=== PATIENT | female | born 1950 | race Caucasian/White ===

== ENCOUNTER → 2016-06-02 | Outpatient (CLI) | payer OTHER ==
[~2016-06-02] MED LIST: ASPEC325 PO; CALC600T37 PO; FRRG PO; MELO7.5T5 PO; MULT-188 PO; MULT-614 PO; PRM/625 PO; [UNRECOGNIZED DRUG - CODE] PO
--- NOTE | 2016-06-02 15:07 | MAMMOGRAPHY REPORT ---
BILATERAL DIGITAL SCREENING MAMMOGRAM WITH CAD: 06/02/2016 CLINICAL HISTORY: Routine screening. Patient has no complaints. TECHNIQUE: Current study was also evaluated with a Computer Aided Detection (CAD) system. Bilatera l CC and MLO views were obtained. COMPARISON: Comparison is made to exams dated: 06/01/2015 mammogram, 05/27/2014 mammogram, 05/22/2013 mammogram, 05/21/2012 mammogram, 05/19/2011 mammogram, and 05/11/2010 mammogram - [facility]. BREAST COMPOSITION: The tissue of both breasts is heterogeneously dense, which may obscure small ma sses. FINDINGS: No suspicious masses, calcifications, or areas of architectural distortion are noted in e ither breast. There has been no significant interval change compared to prior exams. IMPRESSION: ACR BI-RADS CATEGORY 1: NEGATIVE There is no mammographic evidence of malignancy. A 1 year screening mammogram is recommended. The p atient will receive written notification of the results. Approximately 10% of breast cancers are not detected with mammography. A negative mammographic repor t should not delay biopsy if a clinically suggestive mass is present. Michelle Alejandre M.D. /:06/02/2016 12:27:34 Indirect Fire Infantryman: Charlene Strauss, [facility] letter sent: Normal 1/2 BI-RADS Code: ACR BI-RADS Category 1: Negative
== END | disposition home or self-care (01) ==
LOC: C.MAMM 08:45
PROVIDERS: ATTEND Obstetrics & Gynecology
DX: Z12.31 Encounter for screening mammogram for malignant neoplasm of breast (principal)

== ENCOUNTER → 2016-07-19 | Outpatient (CLI) | payer OTHER | END | disposition home or self-care (01) | LOC: C.PAPS 09:26 | PROVIDERS: ATTEND Obstetrics & Gynecology | DX: Z01.419 Encounter for gynecological examination (general) (routine) without abnormal findings (principal) ==

== ENCOUNTER → 2016-09-12 | Outpatient (CLI) | payer OTHER ==
--- NOTE | 2016-10-17 12:41 | CODING QUERY MEDICAL NECESSITY ---
SUPPORTING DIAGNOSIS NEEDED A supporting diagnosis is required for the test/procedure performed on this patient in order for us to be reimbursed by the patient's insurance. Please provide a supporting diagnosis for the following test/procedure listed below next to the test name along with your signature. *If there is no additional diagnosis for this patient that would support the following test/procedure please document that below next to the test/procedure. Test(s)/Procedure(s) that require a supporting diagnosis: * DXA, BONE DENSITY AXIAL DIAGNOSIS: Provider Signature: Date: Thank you Norma [employer] Information Management Once completed, please kindly fax back to [phone] For questions please call [phone]
== END | disposition home or self-care (01) ==
LOC: C.MAMM 08:41
PROVIDERS: ATTEND Internal Medicine
DX: Z00.00 Encounter for general adult medical examination without abnormal findings (principal); D47.2 Monoclonal gammopathy; Z78.0 Asymptomatic menopausal state

== ENCOUNTER → 2017-06-08 | Outpatient (CLI) | payer OTHER ==
--- NOTE | 2017-06-09 14:18 | MAMMOGRAPHY REPORT ---
BILATERAL DIGITAL SCREENING MAMMOGRAM TOMOSYNTHESIS WITH CAD: 06/08/2017 CLINICAL HISTORY: Routine screening. Patient has no complaints. TECHNIQUE: Breast tomosynthesis in addition to standard 2D mammography was performed. Current study was also evaluated with a Computer Aided Detection (CAD) system. COMPARISON: Comparison is made to exams dated: 06/02/2016 mammogram, 06/01/2015 mammogram, 05/27/2014 m ammogram, 05/22/2013 mammogram, 05/21/2012 mammogram, and 05/19/2011 mammogram - [facility] enter. BREAST COMPOSITION: The tissue of both breasts is heterogeneously dense, which may obscure small mas ses. FINDINGS: No suspicious masses, calcifications, or areas of architectural distortion are noted in ei ther breast. There has been no significant interval change compared to prior exams. IMPRESSION: ACR BI-RADS CATEGORY 1: NEGATIVE There is no mammographic evidence of malignancy. A 1 year screening mammogram is recommended. The pa tient will receive written notification of the results. Approximately 10% of breast cancers are not detected with mammography. A negative mammographic report should not delay biopsy if a clinically suggestive mass is present. Michelle Alejandre M.D. ah/:06/08/2017 13:33:26 Stopperer Assembler: Charlene MENENDEZ(R)(M), [facility] letter sent: Normal 1/2 BI-RADS Code: ACR BI-RADS Category 1: Negative
== END | disposition home or self-care (01) ==
LOC: C.MAMM 08:38
PROVIDERS: ATTEND Obstetrics & Gynecology
DX: Z12.31 Encounter for screening mammogram for malignant neoplasm of breast (principal)

== ENCOUNTER → 2017-08-31 | Outpatient (CLI) | payer OTHER | END | disposition home or self-care (01) | LOC: C.LABBC 15:28 | PROVIDERS: ATTEND Internal Medicine | DX: Z00.00 Encounter for general adult medical examination without abnormal findings (principal); E04.1 Nontoxic single thyroid nodule; D47.2 Monoclonal gammopathy ==

== ENCOUNTER 2022-12-30 12:10 | Inpatient (IN) ==
--- NOTE | 2022-12-30 12:47 | XRay Report ---
XR chest 1V not portable CLINICAL HISTORY: Chest pain, nonspecific TECHNIQUE: Single frontal radiograph of the chest was obtained. Comparison: Comparison is made to chest radiograph 12/10/2015 FINDINGS: No lines and tubes are seen. The cardiomediastinal silhouette is normal. Atelectasis at the left lung base. Small bilateral pleural effusions cannot be excluded. IMPRESSION: No acute chest disease. ACT 112: Negative or not required by law. Electronically signed by: Freddy Mcclain M.D. 12/30/2022 12:45 PM
[2022-12-30 13:53] LABS: Basophils # (auto) 0.03 K/uL (0.00-0.20); Basophils % (auto) 0.4 %; Eosinophils # (auto) 0.08 K/uL (0.00-0.50); Eosinophils % (auto) 1.1 %; Hematocrit (blood only) 31.1 % (37.0-47.0); Hemoglobin 10.3 g/dl (12.0-16.0); Immature Granulocytes # (auto) 0.02 K/uL (0.01-0.20); Immature Granulocytes % (auto) 0.3 %; Lymphocytes % (auto) 24.2 %; Mean Corpuscular Hemoglobin 30.5 pg (25.0-34.0); Mean Corpuscular Hgb Conc 33.1 g/dL (32.0-36.0); Mean Platelet Volume 12.3 fL (9.4-12.4); Monocytes % (auto) 7.1 %; Neutrophils % (auto) 66.9 %; Platelet Count 170 K/uL (130-400); RDW Coefficient of Variation 12.9 % (11.5-14.5); RDW Standard Deviation 43.2 fL (36.4-46.3); Red Blood Count 3.38 M/uL (4.20-5.40); White Blood Count 7.03 K/ul (4.8-10.8)
[2022-12-30 14:10] LABS: Albumin Globulin Ratio 0.6 (0.9-2); Albumin Level 2.4 gm/dl (3.4-5.0); BUN Creatinine Ratio 11.3 (10-20); Bilirubin,Total 0.3 mg/dl (0.2-1.0); Calcium 8.1 mg/dl (8.6-10.3); Creatinine Clr Calc Pharmacy 24.4 ml/min; Est GFR (African American) 25.8 ml/min; Est GFR (Non-African American) 22.2 ml/min; Globulin 4.3 gm/dl (2.5-4.0); Magnesium 1.8 mg/dl (1.7-2.4); Potassium 4.1 mmol/L (3.5-5.1); Total Protein 6.7 gm/dl (6.0-8.3)
--- NOTE | 2022-12-30 14:12 | Emergency Department Note ---
Impression & Plan SCOOTER (acute kidney injury), Hypertension, Pedal edema, Anemia ED Provider Note NAME: TRINH ANAYA AGE: 72 SEX: F : 1950 ARRIVES VIA: Walk-In INFORMANT: [Patient][family] ED PROVIDER(S): [Jeff Cleary MD] CHIEF COMPLAINT: Edema HISTORY OF PRESENT ILLNESS: The patient is a 72-year-old female presents to the ER with leg swelling that she has noticed for 5 days. The swelling seems better during the morning but then worsens as the day goes on. She is not short of breath. She does not really have any pain. There has been no difficulty with urination. No cough, cold or congestion. She has no history of issues like this before. She is on some blood pressure medication but does not take any diuretics. She has a recent diagnosis of multiple myeloma however, they have not started treatment. The patient admits that she has been eating differently the last few days because of the iday. She may have increased her salt intake. PMHx/PSHx/Social Hx: See Below PHYSICAL EXAM: GENERAL: Patient is in no acute distress. HEENT: No acute trauma, normocephalic atraumatic, mucous membranes moist, no nasal congestion. NECK: No stridor, no adenopathy, no meningismus, trachea is midline. LUNGS: Clear to auscultation bilaterally, no wheeze, no rhonchi, breath sounds equal. HEART: Without murmurs gallops or rubs, regular rate and rhythm. ABDOMEN: Soft, nontender, no peritonitis. EXTREMITIES: No cyanosis, full range of motion of all the joints without pain or difficulty. Moderate bilateral pedal edema. NEUROLOGIC: Oriented x 3, no acute motor or sensory deficits, no focal weakness. SKIN: No jaundice, no diaphoresis. DIFFERENTIAL DIAGNOSIS: Electrolyte imbalance, renal failure, fluid overload, CHF, DVT, anemia, thyroid disorder, among others. EMERGENCY DEPARTMENT PROCEDURES: MEDICAL DECISION MAKING: There is no leukocytosis. The patient is anemic however, this is baseline looking back at previous testing. There is a normal platelet count. No coagulopathy. Creatinine is high, the patient's creatinine has been rising but today's value is higher than previous testing. No concerning liver enzyme elevation. Patient appeared to be in a euthyroid state. Chest x-ray showed some potential fluid at the left base, no concerning CHF, no pneumonia. Bilateral lower extremity ultrasound did not show findings of DVT. On exam, the patient did have bilateral pedal edema. She was hypertensive. I did speak with nephrology, given the acute kidney injury and hypertension, they recommended IV diuresis and hospitalization. Patient was given a dose of IV Lasix, 40 mg while here in the ED I spoke with the patient and her family, I did speak with case management, the on-call hospitalist was consulted. Prior/Outside records/notes reviewed: Family practice note from 11/29/2022 discussing her chronic conditions and the plan moving forward. ECG per my interpretation: Indication was fluid overload. The ECG shows a normal sinus rhythm with a rate of 61. There is no ST elevation, no PVCs. There is some nonspecific ST change. No ST elevation. The QTc is 440. Continuous Cardiac Monitoring per my interpretation: An order was placed for continuous cardiac monitoring. The monitor shows a rate of 57 with sinus bradycardia. Imaging/x-ray results per my interpretation: Chest x-ray shows some trace fluid at the left base potentially, no pneumonia or CHF. Chronic Medical/Social conditions affecting care: Multiple myeloma Care/Management discussed with: Nephrology-Dr. Keene, case management and the on-call hospitalist. Level of care consideration(s): After review of the information above and other included data: --I believe the patient requires escalation of care to admission DISPOSITION: Admission with nephrology consult Past Med/Surg History Medical History Monoclonal gammopathy of renal significance (MGRS) Stage 3b chronic kidney disease Arthritis Hypertension Proteinuria Hyperlipidemia Abnormal computed tomography of ureter Renal cyst BEING MONITORED Surgical History History of colonoscopy History of total hip arthroplasty S/P partial hysterectomy S/P partial thyroidectomy [place] teeth removed Family History Father Hypertension Other Family history unknown No family history of adverse response to anesthesia Denies family history of Ovarian cancer Prostate cancer Myocardial infarction Breast cancer Colorectal cancer Stroke Social History Smoking Status: Never smoker Second Hand Exposure: No; Do You Dip or Chew Tobacco: No; Hx Alcohol Use: Yes Alcohol type: wine Alcohol Intake Frequency: Monthly or Less Hx Substance Use: No Preferred Language: Eritrean Communication Ability: Effective Visual Impairment: Diminished Hearing Ability: Normal Manager Track Required: No Beliefs That Will Affect Care: None marital status: Current Living Situation: Spouse current occupational status: retired How many Children do You have: 2 Feels Safe at Home: Yes Childhood Exposure to Second-Hand Smoke: No Diet: regular caffeine: Yes Dental Care, Regularly: Yes Physical Activity Frequency: 1-2 Times per Week Physical Activity Frequency Comment: walk Seatbelt Use: always Sunscreen Use: Yes Do you think of yourself as: straight/heterosexual Assistive Devices: None Allergies Allergies Allergy/AdvReac Type Severity Reaction Status Date / Time Sulfa (Sulfonamide Allergy Intermediate HIVES TO Verified 12/30/22 14:57 Antibiotics) SULFA DRUGS Home Meds Home Medications Medication Instructions Recorded Confirmed conjugated estrogens 0.625 mg 0.625 mg PO DAILY 10/16/18 12/30/22 tablet (Premarin) omega-3 fatty acids 1,250 mg 1,250 mg PO DAILY 10/16/18 12/30/22 capsule cholecalciferol (vitamin D3) 50 25 mcg PO DAILY 03/08/22 12/30/22 mcg (2,000 unit) tablet (Vitamin D3) magnesium 250 mg tablet 500 mg PO DAILY 03/08/22 12/30/22 zinc acetate 25 mg (zinc) capsule 25 mg PO DAILY 05/04/22 12/30/22 nebivolol 10 mg tablet 10 mg PO HS 06/22/22 12/30/22 calcium carbonate 500 mg calcium 500 mg PO DAILY 12/30/22 12/30/22 (1,250 mg) tablet rosuvastatin 5 mg tablet 5 mg PO HS 12/30/22 12/30/22 Previous Rx's Medication Instructions Recorded lisinopril 40 mg tablet 40 mg PO QAM #90 tabs 08/30/22 Results & Data (ED) Vital Signs Vital Signs - 24 hr 12/30/22 12:24 12/30/22 13:19 12/30/22 13:35 Temperature 36.8 C Temperature Source Temporal Artery Scan Pulse Rate 66 57 L Pulse Rate [Apical] Respiratory Rate 18 16 Respiratory Effort / Characteristics Respiratory Depth Respiratory Pattern Blood Pressure 213/97 H Blood Pressure [Left Arm] Blood Pressure Mean 135 Blood Pressure Mean [Left Arm] Blood Pressure Position [Left Arm] Pulse Oximetry 97 Oxygen Delivery Method Room Air Sepsis Recent Fever Within 48 Hours No Sepsis New/Unexplained Change in Mental Status No Sepsis Action Taken by Nursing No Action Required 12/30/22 15:09 12/30/22 16:01 12/30/22 18:33 Temperature Temperature Source Pulse Rate Pulse Rate [Apical] 65 59 L Respiratory Rate 18 17 Respiratory Effort / Characteristics Non-Labored Spontaneous Respiratory Depth Normal Respiratory Pattern Regular Blood Pressure Blood Pressure [Left Arm] 210/95 H 200/104 H 168/90 H Blood Pressure Mean Blood Pressure Mean [Left Arm] 133 136 116 Blood Pressure Position [Left Arm] Semi-fowlers Semi-fowlers Pulse Oximetry 97 Oxygen Delivery Method Sepsis Recent Fever Within 48 Hours Sepsis New/Unexplained Change in Mental Status Sepsis Action Taken by Alf Medications Current Medication List: was personally reviewed by me Laboratory Data Attestation: I reviewed the patient's lab results. 12/30/22 13:32 12/30/22 13:32 Lab Results 12/30/22 12/30/22 Range/Units 13:32 18:10 WBC 7.03 (4.8-10.8) K/ul RBC 3.38 L (4.20-5.40) M/uL Hgb 10.3 L (12.0-16.0) g/dl Hct 31.1 L (37.0-47.0) % MCV 92.0 (80.0-100.0) fL MCH 30.5 (25.0-34.0) pg MCHC 33.1 (32.0-36.0) g/dL RDW Std Deviation 43.2 (36.4-46.3) fL RDW Coeff of Christopher 12.9 (11.5-14.5) % Plt Count 170 (130-400) K/uL MPV 12.3 (9.4-12.4) fL Immature Gran % (Auto) 0.3 % Neut % (Auto) 66.9 % Lymph % (Auto) 24.2 % [place] % (Auto) 7.1 % Eos % (Auto) 1.1 % Baso % (Auto) 0.4 % Neut # (Auto) 4.70 (1.40-6.50) K/uL Lymph # (Auto) 1.70 (1.20-3.40) K/uL [place] # (Auto) 0.50 (0.11-0.59) K/uL Eos # (Auto) 0.08 (0.00-0.50) K/uL Baso # (Auto) 0.03 (0.00-0.20) K/uL Immature Gran # (Auto) 0.02 (0.01-0.20) K/uL PT 9.6 (9.0-12.0) Seconds INR 0.9 (0.9-1.1) APTT 20.2 L (21.0-31.0) Seconds PTT Ratio 0.7 Sodium 137 (136-145) mmol/L Potassium 4.1 (3.5-5.1) mmol/L Chloride 109 H (98-107) mmol/L Carbon Dioxide 24 (21-32) mmol/L Anion Gap 4 (3-11) BUN 24 H (6-23) mg/dl Creatinine 2.13 H (0.6-1.2) mg/dl Est Cr Clr Drug Dosing 24.4 ml/min Est GFR ( Amer) 25.8 ml/min Est GFR (Non-Af Amer) 22.2 ml/min BUN/Creatinine Ratio 11.3 (10-20) Glucose 76 (70-99(Fasting)) mg/dl Calcium 8.1 L (8.6-10.3) mg/dl Magnesium 1.8 (1.7-2.4) mg/dl Total Bilirubin 0.3 (0.2-1.0) mg/dl AST 16 (13-39) U/L ALT 10 (7-52) U/L Alkaline Phosphatase 49 (34-104) U/L Troponin I High Sens 6.1 (0-14) pg/ml B-Natriuretic Peptide 609 H (0-100) pg/ml Total Protein 6.7 (6.0-8.3) gm/dl Albumin 2.4 L (3.4-5.0) gm/dl Globulin 4.3 H (2.5-4.0) gm/dl Albumin/Globulin Ratio 0.6 L (0.9-2) TSH 3.498 (0.300-4.500) uIu/ml Administered Medications Discontinued Medications Furosemide (Furosemide 40 Mg/4 Ml Vial) 40 mg IV ONE ONE Stop: 12/30/22 14:42 Last Admin: 12/30/22 15:08 Dose: 40 mg Documented By: GRACE Nebivolol (Nebivolol Hcl) 1 each PO NOW STA Stop: 12/30/22 17:27 Last Admin: 12/30/22 17:37 Dose: 1 each Documented By: AB Imaging Data Radiologist's Impression: Chest X-Ray 12/30/22 12:29 XR chest 1V not portable CLINICAL HISTORY: Chest pain, nonspecific TECHNIQUE: Single frontal radiograph of the chest was obtained. Comparison: Comparison is made to chest radiograph 12/10/2015 FINDINGS: No lines and tubes are seen. The cardiomediastinal silhouette is normal. Atelectasis at the left lung base. Small bilateral pleural effusions cannot be excluded. IMPRESSION: No acute chest disease. ACT 112: Negative or not required by law. Electronically signed by: Freddy Mcclain M.D. 12/30/2022 12:45 PM Venous Doppler Study 12/30/22 13:41 US venous doppler LE CLINICAL HISTORY: swelling TECHNIQUE: Bilateral lower extremity real-time compression venous ultrasound with Color Doppler imaging. Utilizing real-time ultrasonic imaging multiple real time high-resolution ultrasonic images with compression and noncompression maneuvers of the deep venous system in addition to color doppler imaging were performed from the common femoral vein through the proximal calf veins. COMPARISON: None available at the time of this dictation. FINDINGS/IMPRESSION: Currently there is normal compressibility of the deep venous system from the common femoral vein through the proximal calf veins. No superficial venous thrombosis is identified. ACT 112: Negative or not required by law. Electronically signed by: Freddy Mcclain M.D. 12/30/2022 2:35 PM Discharge Plan Visit Data Chief Complaint: Edema To Extremity Stated Complaint: swelling in thigh, ref by doc ED Provider: Jeff Cleary Discharge Problem: SCOOTER (acute kidney injury), Hypertension, Pedal edema, Anemia Patient Disposition: Admitted As Inpatient Condition: Fair Forms Stand Alone Forms: [facility] Prescriptions Prescriptions: No Action zinc acetate 25 mg (zinc) capsule 25 mg PO DAILY lisinopril 40 mg tablet 40 mg PO QAM Qty: 90 3RF Premarin 0.625 mg tablet 0.625 mg PO DAILY omega-3 fatty acids 1,250 mg capsule 1,250 mg PO DAILY cholecalciferol (vitamin D3) [Vitamin D3] 50 mcg (2,000 unit) tablet 25 mcg PO DAILY magnesium 250 mg tablet 500 mg PO DAILY nebivolol 10 mg tablet 10 mg PO HS calcium carbonate [Calcium 500] 500 mg calcium (1,250 mg) Tablet 500 mg PO DAILY rosuvastatin 5 mg tablet 5 mg PO HS Rx Instructions: Take 1 tablet by mouth once daily Referrals Referrals: Cari Whitaker PA-C [Primary Care Provider] - Discharge Problem: Hypertension Qualifiers: Hypertension type: unspecified Qualified Code(s): I10 - Essential (primary) hypertension Anemia Qualifiers: Anemia type: unspecified type Qualified Code(s): D64.9 - Anemia, unspecified
[2022-12-30 14:17] LABS: Troponin I High Sensitivity 6.1 pg/ml (0-14)
[2022-12-30 14:25] LABS: INR 0.9 (0.9-1.1); Partial Thromboplastin Ratio 0.7; Partial Thromboplastin Time 20.2 Seconds (21.0-31.0); Prothrombin Time 9.6 Seconds (9.0-12.0)
[2022-12-30 14:26] LABS: Thyroid Stimulating Hormone 3.498 uIu/ml (0.300-4.500)
--- NOTE | 2022-12-30 14:36 | Ultrasound Report ---
US venous doppler LE BI CLINICAL HISTORY: swelling TECHNIQUE: Bilateral lower extremity real-time compression venous ultrasound with Color Doppler imagi ng. Utilizing real-time ultrasonic imaging multiple real time high-resolution ultrasonic images with compression and noncompression maneuvers of the deep venous system in addition to color doppler imagi ng were performed from the common femoral vein through the proximal calf veins. COMPARISON: None available at the time of this dictation. FINDINGS/IMPRESSION: Currently there is normal compressibility of the deep venous system from the common femoral vein thro ugh the proximal calf veins. No superficial venous thrombosis is identified. ACT 112: Negative or not required by law. Electronically signed by: Freddy Mcclain M.D. 12/30/2022 2:35 PM
[2022-12-30] MEDS ORDERED: FUROSEMIDE 40 MG/4 ML VIAL IV ONE (14:41)
--- NOTE | 2022-12-30 15:59 | History & Physical Report ---
Date of Service December 30, 2022 Assessment & Plan (1) Lower extremity edema: Plan: Worsening lower extremity swelling x4 days Patient endorses recent change in diet around Thanksgiving; more salt No hx of CHF BNP elevated at 609 Routine echo ordered CXR revealed NAF Elevated creatinine at 2.13 (with baseline 1.5, but increasing over the last few months) Venous Doppler of the LEs B/L revealed no DVTs Lasix 40 mg given in the ED Continue diuresis; Lasix 40 mg IV QAM Continue to trend creatinine level with daily labs A.m. CBC, BMP (2) Hypertension: Plan: Elevated BP at 210/95 at time of admission Continue home nebivolol HS if okay by pharmacy Labetalol 2.5 mg IV and hydralazine 10 mg p.o. given Patient placed in PCU in case additional IV antihypertensives are needed (3) Stage 3b chronic kidney disease: Plan: BUN 24, creatinine 2.13, EGFR 22.2 on arrival Patient follows with [facility] nephrology Avoid nephrotoxic agents Hold lisinopril (4) Multiple myeloma: Plan: Dx 2 weeks ago; following with Dr. Greenberg Treatment has not started yet (5) Monoclonal gammopathy of renal significance (MGRS): Plan: With recent conversion to multiple myeloma Plan Disposition: Obs -admit to PCU telemetry Full code Low Na diet VTE PPx: Teds History of Present Illness Chief Complaint: Edema to extremity Primary Care Provider: Cari Whitaker PA-C Anita is a 72-year-old female with PMH of MGRS, recent multiple myeloma dx, CKD stage IIIb, and HTN. She presented for worsening leg swelling x4 days. She reports that she has been eating more salty foods this past week due to Thanksgiving. No prior history of leg swelling. No PMH of CHF. No pain/redness in the legs on arrival. Patient reports that she took her morning medications, and that there are no recent changes in medications. She does not take diuretics. Of note, the patient was recently diagnosed with multiple myeloma and follows with Dr. Greenberg, but no cancer treatment has been started yet. Patient denies tobacco use, recreational drug use; endorses minimal alcohol use. Patient exhibits hypertension at 210/95 at time of admission; SPO2 97% on RA; vitals otherwise stable. ED course: Lasix 40 mg IV ROS: Patient endorses diarrhea over the last week, and swelling in LEs. Patient denies fever, chills, sweating, CP, SOB, abdominal pain, N/V, burning with urination, dysuria, or redness/numbness/tingling/pain in the legs. No PMHx CHF, SC, DVT/PE, diabetes Allergies Allergy/AdvReac Type Severity Reaction Status Date / Time Sulfa (Sulfonamide Allergy Intermediate HIVES TO Verified 12/30/22 14:57 Antibiotics) SULFA DRUGS Home Medications Medication Instructions Recorded Confirmed Type conjugated estrogens 0.625 mg 0.625 mg PO DAILY 10/16/18 12/30/22 History tablet (Premarin) omega-3 fatty acids 1,250 mg 1,250 mg PO DAILY 10/16/18 12/30/22 History capsule cholecalciferol (vitamin D3) 50 25 mcg PO DAILY 03/08/22 12/30/22 History mcg (2,000 unit) tablet (Vitamin D3) magnesium 250 mg tablet 500 mg PO DAILY 03/08/22 12/30/22 History zinc acetate 25 mg (zinc) capsule 25 mg PO DAILY 05/04/22 12/30/22 History nebivolol 10 mg tablet 10 mg PO HS 06/22/22 12/30/22 History lisinopril 40 mg tablet 40 mg PO QAM #90 tabs 08/30/22 12/30/22 Rx calcium carbonate 500 mg calcium 500 mg PO DAILY 12/30/22 12/30/22 History (1,250 mg) tablet rosuvastatin 5 mg tablet 5 mg PO HS 12/30/22 12/30/22 History Past Med/Surg History Medical History Monoclonal gammopathy of renal significance (MGRS) Stage 3b chronic kidney disease Arthritis Hypertension Proteinuria Hyperlipidemia Abnormal computed tomography of ureter Renal cyst BEING MONITORED Surgical History History of colonoscopy History of total hip arthroplasty S/P partial hysterectomy S/P partial thyroidectomy [place] teeth removed Family History Father Hypertension Other Family history unknown No family history of adverse response to anesthesia Denies family history of Ovarian cancer Prostate cancer Myocardial infarction Breast cancer Colorectal cancer Stroke Social History Smoking Status: Never smoker Second Hand Exposure: No; Do You Dip or Chew Tobacco: No; Hx Alcohol Use: Yes Alcohol type: wine Alcohol Intake Frequency: Monthly or Less Hx Substance Use: No Preferred Language: Citizen Of [place] Communication Ability: Effective Visual Impairment: Diminished Hearing Ability: Normal Director Inbound Sales Required: No Beliefs That Will Affect Care: None marital status: Current Living Situation: Spouse current occupational status: retired How many Children do You have: 2 Other Information That Helps Us Care for You: No Feels Safe at Home: Yes Safety Concerns: Feels Safe At This Time Childhood Exposure to Second-Hand Smoke: No Diet: regular caffeine: Yes Dental Care, Regularly: Yes Physical Activity Frequency: 1-2 Times per Week Physical Activity Frequency Comment: walk Seatbelt Use: always Sunscreen Use: Yes Do you think of yourself as: straight/heterosexual Assistive Devices: None Review of Systems Review of Systems: See HPI above Physical Exam Physical Exam: General: no acute distress; non-toxic appearing; well-nourished; cooperative HEENT: normocephalic, atraumatic; no scleral icterus; PERRLA w/ EOMs intact; moist mucus membrane; vision and hearing grossly intact Neck: supple; + JVD; no lymphadenopathy; trachea midline Skin: warm, dry without signs of tenting; no cyanosis; no rashes, bruising, lesions, or erythema noted CV: chest wall NTP; RRR; S1/S2 normal; no murmurs/rubs/gallops; pulses intact and symmetric at radial, DP, and PT Lungs: no acute respiratory distress; symmetrical chest wall expansion; clear breath sounds across all lung moscoso w/o adventitious sounds; no wheezing ABD: Soft, NTP; BS present; no rebound/guarding; no ascites; no distention; negative CVA tenderness MSK: no tics or fasciculations; +2 edema in the lower extremities B/L extending from the dorsal aspect of both feet up to the knees; patient demonstrates the ability to wiggle toes; full active ROM of LEs; no dizziness when walking Neuro: A&Ox3; normal mood and affect; fluent speech; no focal deficits; sensation grossly intact in the LEs B/L Results & Data Results & Data Vital Signs (Past 12 Hours) Vital Signs Temp Pulse Pulse Resp BP BP Pulse Ox 12/30/22 15:09 65 18 210/95 H 97 12/30/22 13:35 16 12/30/22 13:19 57 L 12/30/22 12:24 36.8 C 66 18 213/97 H 97 O2 Del Method 12/30/22 15:09 12/30/22 13:35 12/30/22 13:19 12/30/22 12:24 Room Air Laboratory Results Abnormal lab results 12/30/22 Range/Units 13:32 RBC 3.38 L (4.20-5.40) M/uL Hgb 10.3 L (12.0-16.0) g/dl Hct 31.1 L (37.0-47.0) % APTT 20.2 L (21.0-31.0) Seconds Chloride 109 H (98-107) mmol/L BUN 24 H (6-23) mg/dl Creatinine 2.13 H (0.6-1.2) mg/dl Calcium 8.1 L (8.6-10.3) mg/dl Albumin 2.4 L (3.4-5.0) gm/dl Globulin 4.3 H (2.5-4.0) gm/dl Albumin/Globulin Ratio 0.6 L (0.9-2) Diagnostic Findings Chest X-Ray 12/30/22 12:29 XR chest 1V not portable CLINICAL HISTORY: Chest pain, nonspecific TECHNIQUE: Single frontal radiograph of the chest was obtained. Comparison: Comparison is made to chest radiograph 12/10/2015 FINDINGS: No lines and tubes are seen. The cardiomediastinal silhouette is normal. Atelectasis at the left lung base. Small bilateral pleural effusions cannot be excluded. IMPRESSION: No acute chest disease. ACT 112: Negative or not required by law. Electronically signed by: Freddy Mcclain M.D. 12/30/2022 12:45 PM Venous Doppler Study 12/30/22 13:41 US venous doppler LE CLINICAL HISTORY: swelling TECHNIQUE: Bilateral lower extremity real-time compression venous ultrasound with Color Doppler imaging. Utilizing real-time ultrasonic imaging multiple real time high-resolution ultrasonic images with compression and noncompression maneuvers of the deep venous system in addition to color doppler imaging were performed from the common femoral vein through the proximal calf veins. COMPARISON: None available at the time of this dictation. FINDINGS/IMPRESSION: Currently there is normal compressibility of the deep venous system from the common femoral vein through the proximal calf veins. No superficial venous thrombosis is identified. ACT 112: Negative or not required by law. Electronically signed by: Freddy Mcclain M.D. 12/30/2022 2:35 PM Code Status & VTE Plan Code Status Full code VTE Prophylaxis Plan VTE Prophylaxis will be ordered: Yes Supervising Physician Co-Signing Physician Notes Patient seen and examined, chart reviewed, case discussed with Gifty Cid I agree with the assessment and plan as above except as otherwise noted Labs and images reviewed Anita is a 72yo F with a PMHx of MGUS recently dx with MM. Several days of leg swelling, presented to the ER for concern of elevated creatinine and leg swelling. Was discussed with nephrology while in the ER, recommend lasix 20mg daily No prior history of hx of CHF. Echo pending. No chest pain. Dopplers negative for PE. EKG nsr nonspecific ST/T wave change and no territorial ST elevation/depressions or T wave inversions. Shital is seen at the bedside MGUS followed with Dr. Greenberg. Was followed for over 7 years, recently want found to have progressed to MM. She is not sure which mutations are present or what regimen is going to be selected, but she is following up this week for discussion of chemotherapy and anticipated to start chemo on January 16 she has a history CKD is thought to be due to gammopathy, although has had hx of elevated BP. Started antihypertensives 2 years ago, home BP is normally 140s/80s in the last few weeks. 160s in the doctors office and has had some white coat syndrome. Doing well with nebivolol and lisinopril normally as outpatient. Per Anita and her family she has had progressive leg swelling for 5 days. Has had more salt than normal and charcutery for the holidays although did not eat very much of this. She is still peeing regularly, a little less than normal in the last 2 days a cloudy-yellow neither light nor dark. No dysuria. No polyuria. No flank or back pain. She has not had any chest pain or chest pressure at any time and has no history of CAD/heart failure high-sensitivity troponin was normal. Suspect CKD 2/2 gammopathy, may also have some hypertensive renal dysfunction. Patient is clinically volume overloaded with an elevated BNP. Echo is pending, no evidence of SC/acute ischemic disease. Some salt indiscretion, continue diuresis with Lasix daily and follow-up BMP daily Hx HTN on tx x2 years. Goal inpatient SBP less than 180, patient is with significant whitecoat hypertension. eceived her home nebivolol, remains hypertensive in 200s on 1 hour recheck,.May use labetelol q6h adjunct if HR >60. Alternatively can add q6h hydralazine, prefer OR over IV due to risk of precipitious drop. No symptoms of HTN at bedside. Signed out to overnight resident. Moved to PCU. Agree with assessment and management above PG Care Time/CCT Total # of Minutes Spent Total Time Spent with Patient: Total time spent is greater than 50% in coordination of care (as documented) at patient's floor/unit and/or counseling patient: Coding [place] [address] INT INP/OBS CARE 2/55MIN Patient Type Established Medical Decision Making Moderate Complexity Diagnoses Lower extremity edema R60.0 Hypertension I10 Stage 3b chronic kidney disease N18.32 Multiple myeloma C90.00 Monoclonal gammopathy of renal significance (MGRS) D47.2; N29
[2022-12-30] MEDS ORDERED: NEBIVOLOL HCL PO STA (17:26)
[2022-12-30] MEDS ORDERED: hydrALAZINE 10 MG TAB PO ONE (19:35)
[2022-12-30] MEDS ORDERED: LABETALOL HCL IV 5 MG/ML 20ML IV STA (19:54)
[2022-12-30] MEDS ORDERED: ACETAMINOPHEN 325 MG TAB PO PRN (20:23)
[2022-12-30] MEDS: ROSUVASTATIN CALCIUM 5 MG TAB PO SCH (21:07)
[2022-12-31 06:05] LABS: Basophils # (auto) 0.02 K/uL (0.00-0.20); Basophils % (auto) 0.4 %; Eosinophils # (auto) 0.07 K/uL (0.00-0.50); Eosinophils % (auto) 1.2 %; Hematocrit (blood only) 28.9 % (37.0-47.0); Hemoglobin 9.1 g/dl (12.0-16.0); Immature Granulocytes # (auto) 0.02 K/uL (0.01-0.20); Immature Granulocytes % (auto) 0.4 %; Lymphocytes # (auto) 1.79 K/uL (1.20-3.40); Lymphocytes % (auto) 31.5 %; Mean Corpuscular Hemoglobin 29.7 pg (25.0-34.0); Mean Corpuscular Hgb Conc 31.5 g/dL (32.0-36.0); Mean Corpuscular Volume 94.4 fL (80.0-100.0); Mean Platelet Volume 12.4 fL (9.4-12.4); Monocytes # (auto) 0.46 K/uL (0.11-0.59); Monocytes % (auto) 8.1 %; Neutrophils # (auto) 3.33 K/uL (1.40-6.50); Neutrophils % (auto) 58.4 %; Platelet Count 155 K/uL (130-400); RDW Coefficient of Variation 12.7 % (11.5-14.5); RDW Standard Deviation 43.8 fL (36.4-46.3); Red Blood Count 3.06 M/uL (4.20-5.40); White Blood Count 5.69 K/ul (4.8-10.8)
[2022-12-31 06:22] LABS: BUN Creatinine Ratio 11.8 (10-20); Calcium 7.7 mg/dl (8.6-10.3); Creatinine Clr Calc Pharmacy 23.6 ml/min; Est GFR (African American) 27.3 ml/min; Est GFR (Non-African American) 23.6 ml/min; Potassium 3.7 mmol/L (3.5-5.1)
[2022-12-31] MEDS: ESTROGENS, CONJUGATED 0.625 MG TAB PO SCH (08:22)
[2022-12-31] MEDS: MAGNESIUM OXIDE 400 MG TAB PO SCH (08:22)
[2022-12-31] MEDS: FUROSEMIDE 40 MG/4 ML VIAL IV SCH (08:22)
--- NOTE | 2022-12-31 08:29 | Electrocardiogram Report ---
Test Reason : Blood Pressure : / mmHG Vent. Rate : 061 BPM Atrial Rate : 061 BPM P-R Int : 160 ms QRS Dur : 084 ms QT Int : 438 ms P-R-T Axes : 082 042 063 degrees QTc Int : 440 ms Normal sinus rhythm Normal ECG When compared with ECG of 05-DEC-2020 02:34, No significant change was found Confirmed by Ravi Haney ([id number]) on 12/31/2022 8:29:32 AM Referred By: Cari Whitaker Confirmed By:Ravi Haney
[2022-12-31] MEDS: lisinopril 40 MG TAB PO SCH (08:47)
[2022-12-31 09:04] LABS: Appearance Urine Cloudy (Clear); Bacteria Urine Automated 4+ (Negative); Bilirubin Urine Negative (Negative); Blood Urine 3+ (Negative); Color Urine Yellow; Glucose Urine UA Negative (Negative); Ketones Urine Negative (Negative); Leukocyte Esterase Urine Trace (Negative); Nitrite Urine Positive (Negative); Protein Urine 4+ (Negative); RBC Urine Automated >30 /hpf (0-4); Specific Gravity Urine 1.013 (1.000-1.030); Urobilinogen Urine Negative (Negative); WBC Urine Automated >30 /hpf (0-5)
[2022-12-31 09:46] LABS: Protein Creatinine Ratio Urine 10.5 (0-0.2)
--- NOTE | 2022-12-31 10:27 | Hospitalist Progress Note ---
Date of Service December 31, 2022 Assessment & Plan (1) Lower extremity edema: Plan: Suspect due to CKD from proteinuria from myeloma +/- hypertensive kidney disease ARPITA hose + Lasix/chlorthalidone (2) Hypertension: Plan: Continue lisinopril and Bystolic IV Lasix 40mg daily Added chlorthalidone as still raised after this May need due use calcium channel carmen if still raised after this but will try to avoid as will likely worsen lower extremity edema (3) Asymptomatic bacteriuria: Plan: Possible diagnosis Discussed with Dr Greenberg and recommended treating in setting of multiple myeloma Blood cultures, procalcitonin, CRP, ESR Start ceftriaxone (4) Stage 3b chronic kidney disease: Plan: BUN 24, creatinine 2.13, EGFR 22.2 on arrival Patient follows with [facility] nephrology Ok to continue lisinopril (5) Multiple myeloma: Plan: Dx 2 weeks ago; following with Dr. Greenberg Treatment has not started yet (6) Monoclonal gammopathy of renal significance (MGRS): Plan: With recent conversion to multiple myeloma Plan Disposition: Obs -admit to PCU telemetry Full code Low Na diet VTE PPx: Teds Admission and Anticipated Discharge Date Admission Date: December 30, 2022 Subjective No significant improvement in leg edema overnight. No fever, chills, erythema. UA concerning for infection but she denies any back pain, abdominal pain, dysuria, change in smell or frequency. Review of Systems Review of Systems: All systems reviewed & are unremarkable except as noted in HPI & below Physical Exam Constitutional: WD/WN, vitals as above ENMT: external ear and nose normal, oropharynx normal Respiratory: normal respiratory effort, lungs clear to auscultation Cardiovascular: RRR, no murmur, no edema Gastrointestinal (Abdomen): normal bowel sounds, soft, nontender, no hepatosplenomegaly Musculoskeletal: no cyanosis or clubbing, extremities motor strength 5/5 Skin: no rashes, warm and dry Psychiatric: A+Ox3, euthymic affect Genitourinary: no CVA tenderness Results & Data Results & Data Vital Signs (Past 12 Hours) Vital Signs Temp Pulse Pulse Resp BP Pulse Ox O2 Del Method 12/31/22 09:54 57 L 12/31/22 07:54 36.5 C 63 18 172/76 H 98 Room Air 12/30/22 23:00 36.5 C 62 16 158/62 H 98 Room Air PG Care Time/CCT Total # of Minutes Spent Total Time Spent with Patient: Total time spent is greater than 50% in coordination of care (as documented) at patient's floor/unit and/or counseling patient: Coding Level of Care Code 58325 SUB INP/OBS CARE 3/50MIN Diagnoses Lower extremity edema R60.0 Other secondary hypertension I15.8 Hypertension type: other secondary hypertension Asymptomatic bacteriuria R82.71 Stage 3b chronic kidney disease N18.32 Multiple myeloma not having achieved remission C90.00 Multiple myeloma remission status: not in remission Monoclonal gammopathy of renal significance (MGRS) D47.2; N29 (2) Hypertension Hypertension type: other secondary hypertension Qualified Code(s): I15.8 - Other secondary hypertension (5) Multiple myeloma Multiple myeloma remission status: not in remission Qualified Code(s): C90.00 - Multiple myeloma not having achieved remission
[2022-12-31] MEDS: cefTRIAXone SODIUM 1,000 MG in DEXTROSE 5 % MINI-B 50 ML IV SCH (12:09)
--- NOTE | 2022-12-31 12:11 | XCELERA ---
[id number] \\[id number]
[2022-12-31 13:27] LABS: Appearance Urine Clear (Clear); Bacteria Urine Automated 4+ (Negative); Bilirubin Urine Negative (Negative); Blood Urine 3+ (Negative); Color Urine Yellow; Epithelial Cell Urine Auto >30 /lpf (0-5); Glucose Urine UA Negative (Negative); Ketones Urine Negative (Negative); Leukocyte Esterase Urine Negative (Negative); Nitrite Urine Negative (Negative); Protein Urine 3+ (Negative); RBC Urine Automated >30 /hpf (0-4); Specific Gravity Urine 1.009 (1.000-1.030); Urobilinogen Urine Negative (Negative)
[2022-12-31] MEDS: CHLORTHALIDONE 25 MG TAB PO SCH (16:09)
[2022-12-31] MEDS: ROSUVASTATIN CALCIUM 5 MG TAB PO SCH (21:27)
[2022-12-31] MEDS: NEBIVOLOL HCL PO SCH (21:28)
[2022-12-31] MEDS: METOPROLOL TARTRATE 50 MG TAB PO SCH (22:11)
[2023-01-01 08:05] LABS: Basophils # (auto) 0.03 K/uL (0.00-0.20); Basophils % (auto) 0.4 %; Eosinophils % (auto) 1.3 %; Hemoglobin 9.5 g/dl (12.0-16.0); Immature Granulocytes # (auto) 0.03 K/uL (0.01-0.20); Immature Granulocytes % (auto) 0.4 %; Lymphocytes # (auto) 1.86 K/uL (1.20-3.40); Lymphocytes % (auto) 23.5 %; Mean Corpuscular Hemoglobin 30.7 pg (25.0-34.0); Mean Corpuscular Hgb Conc 32.8 g/dL (32.0-36.0); Mean Corpuscular Volume 93.9 fL (80.0-100.0); Mean Platelet Volume 12.5 fL (9.4-12.4); Monocytes # (auto) 0.62 K/uL (0.11-0.59); Monocytes % (auto) 7.8 %; Neutrophils # (auto) 5.29 K/uL (1.40-6.50); Neutrophils % (auto) 66.6 %; Platelet Count 162 K/uL (130-400); RDW Coefficient of Variation 12.8 % (11.5-14.5); Red Blood Count 3.09 M/uL (4.20-5.40); Reticulocyte % 0.9 % (0.5-2.0); Reticulocytes # 0.03 10^6/uL (0.02-0.10); White Blood Count 7.93 K/ul (4.8-10.8)
[2023-01-01] MEDS: CHLORTHALIDONE 25 MG TAB PO SCH (08:13)
[2023-01-01] MEDS: lisinopril 40 MG TAB PO SCH (08:13)
[2023-01-01] MEDS: MAGNESIUM OXIDE 400 MG TAB PO SCH (08:13)
[2023-01-01] MEDS: ESTROGENS, CONJUGATED 0.625 MG TAB PO SCH (08:14)
[2023-01-01] MEDS: METOPROLOL TARTRATE 50 MG TAB PO SCH (08:14)
[2023-01-01] MEDS: FUROSEMIDE 40 MG/4 ML VIAL IV SCH (08:14)
[2023-01-01 08:24] LABS: BUN Creatinine Ratio 13.2 (10-20); Calcium 7.9 mg/dl (8.6-10.3); Creatinine Clr Calc Pharmacy 24.4 ml/min; Est GFR (African American) 28.3 ml/min; Est GFR (Non-African American) 24.4 ml/min; Magnesium 1.7 mg/dl (1.7-2.4); Potassium 3.8 mmol/L (3.5-5.1)
[2023-01-01] MEDS: HEPARIN SOD 5,000 UNIT/0.5 ML VIAL SQ SCH ×2 (10:46→20:33)
[2023-01-01] MEDS: cefTRIAXone SODIUM 1,000 MG in DEXTROSE 5 % MINI-B 50 ML IV SCH (10:46)
--- NOTE | 2023-01-01 11:36 | Hospitalist Progress Note ---
Date of Service January 01, 2023 Assessment & Plan (1) Lower extremity edema: Plan: Suspect due to CKD from proteinuria from myeloma +/- hypertensive kidney disease ARPITA quintanilla + Lasix/chlorthalidone Improved with above treatment, switch lasix 40mg IV to PO starting tomorrow and continue chlorthalidone. Will need close management with labs as an outpatient to ensure no potassium/magnesium abnormalities (2) Hypertension: Plan: Continue lisinopril and Bystolic Added Lasix/chlorthalidone however despite this sBP remains > 180 Would try to not over treat however with sBP > 180 concern this is contributing towards CKD/proteinuria therefore will start amlodipine despite obvious side effect of leg swelling since this appears to be less of an issue now she is on diuretics (3) Asymptomatic bacteriuria: Plan: Possible diagnosis Discussed with Dr Greenberg and recommended treating in setting of multiple myeloma Blood cultures, procalcitonin, CRP, ESR Start ceftriaxone Urine culture x2 growing GNB, blood culture negative to date (4) Stage 3b chronic kidney disease: Plan: BUN 24, creatinine 2.13, EGFR 22.2 on arrival Patient follows with [facility] nephrology Ok to continue lisinopril (5) Multiple myeloma: Plan: Dx 2 weeks ago; following with Dr. Greenberg Treatment has not started yet (6) Monoclonal gammopathy of renal significance (MGRS): Plan: With recent conversion to multiple myeloma Plan VTE Prophylaxis - heparin 5000 units SQ BID Diet - low Na Disposition - continue on med/tele pending identification of urine culture and better management of blood pressure in setting of CKD/proteinuria Admission and Anticipated Discharge Date Admission Date: December 30, 2022 Subjective Significant improvement in her leg swelling. However she remains hypertensive but without headache or vision changes. She does not some white coat hypertension but no dizziness or lightheadedness. No fever, chills, back pain, dysuria. Updated her at bedside. Review of Systems Review of Systems: All systems reviewed & are unremarkable except as noted in HPI & below Physical Exam Constitutional: WD/WN, vitals as above ENMT: external ear and nose normal, oropharynx normal Respiratory: normal respiratory effort, lungs clear to auscultation Cardiovascular: RRR, no murmur, no edema Gastrointestinal (Abdomen): normal bowel sounds, soft, nontender, no hepatosplenomegaly Musculoskeletal: no cyanosis or clubbing, extremities motor strength 5/5 Skin: no rashes, warm and dry Psychiatric: A+Ox3, euthymic affect Genitourinary: no CVA tenderness Results & Data Results & Data Vital Signs (Past 12 Hours) Vital Signs Temp Pulse Pulse Resp BP Pulse Ox O2 Del Method 01/01/23 09:37 57 L 01/01/23 07:28 36.7 C 59 L 18 186/84 H 98 Room Air 01/01/23 03:25 36.5 C 60 17 181/78 H 96 Room Air Laboratory Results Abnormal lab results 01/01/23 Range/Units 07:06 RBC 3.09 L (4.20-5.40) M/uL Hgb 9.5 L (12.0-16.0) g/dl Hct 29.0 L (37.0-47.0) % MPV 12.5 H (9.4-12.4) fL [place] # (Auto) 0.62 H (0.11-0.59) K/uL Chloride 108 H (98-107) mmol/L BUN 26 H (6-23) mg/dl Creatinine 1.97 H (0.6-1.2) mg/dl Calcium 7.9 L (8.6-10.3) mg/dl PG Care Time/CCT Total # of Minutes Spent Total Time Spent with Patient: Total time spent is greater than 50% in coordination of care (as documented) at patient's floor/unit and/or counseling patient: Coding Level of Care Code 51759 SUB INP/OBS CARE 2/35MIN Diagnoses Lower extremity edema R60.0 Other secondary hypertension I15.8 Hypertension type: other secondary hypertension Asymptomatic bacteriuria R82.71 Stage 3b chronic kidney disease N18.32 Multiple myeloma not having achieved remission C90.00 Multiple myeloma remission status: not in remission Monoclonal gammopathy of renal significance (MGRS) D47.2; N29 (2) Hypertension Hypertension type: other secondary hypertension Qualified Code(s): I15.8 - Other secondary hypertension (5) Multiple myeloma Multiple myeloma remission status: not in remission Qualified Code(s): C90.00 - Multiple myeloma not having achieved remission
[2023-01-01] MEDS: amLODIPine BESYLATE 5 MG TAB PO SCH (12:32)
[2023-01-01] MEDS: NEBIVOLOL HCL PO SCH (20:32)
[2023-01-01] MEDS: ROSUVASTATIN CALCIUM 5 MG TAB PO SCH (20:32)
[2023-01-02 07:00] LABS: Basophils # (auto) 0.03 K/uL (0.00-0.20); Basophils % (auto) 0.5 %; Eosinophils % (auto) 1.8 %; Hematocrit (blood only) 30.3 % (37.0-47.0); Hemoglobin 10.1 g/dl (12.0-16.0); Immature Granulocytes # (auto) 0.02 K/uL (0.01-0.20); Immature Granulocytes % (auto) 0.4 %; Lymphocytes # (auto) 1.93 K/uL (1.20-3.40); Lymphocytes % (auto) 33.9 %; Mean Corpuscular Hemoglobin 30.4 pg (25.0-34.0); Mean Corpuscular Hgb Conc 33.3 g/dL (32.0-36.0); Mean Corpuscular Volume 91.3 fL (80.0-100.0); Mean Platelet Volume 12.6 fL (9.4-12.4); Monocytes # (auto) 0.43 K/uL (0.11-0.59); Monocytes % (auto) 7.5 %; Neutrophils # (auto) 3.19 K/uL (1.40-6.50); Neutrophils % (auto) 55.9 %; Platelet Count 161 K/uL (130-400); RDW Coefficient of Variation 12.6 % (11.5-14.5); RDW Standard Deviation 41.9 fL (36.4-46.3); Red Blood Count 3.32 M/uL (4.20-5.40)
[2023-01-02 07:16] LABS: BUN Creatinine Ratio 13.3 (10-20); Calcium 8.1 mg/dl (8.6-10.3); Creatinine Clr Calc Pharmacy 22.9 ml/min; Est GFR (African American) 26.2 ml/min; Est GFR (Non-African American) 22.6 ml/min; Potassium 3.6 mmol/L (3.5-5.1)
[2023-01-02] MEDS: lisinopril 40 MG TAB PO SCH (08:15)
[2023-01-02] MEDS: ESTROGENS, CONJUGATED 0.625 MG TAB PO SCH (08:15)
[2023-01-02] MEDS: amLODIPine BESYLATE 5 MG TAB PO SCH (08:15)
[2023-01-02] MEDS: MAGNESIUM OXIDE 400 MG TAB PO SCH (08:15)
[2023-01-02] MEDS: HEPARIN SOD 5,000 UNIT/0.5 ML VIAL SQ SCH (08:15)
[2023-01-02] MEDS: CHLORTHALIDONE 25 MG TAB PO SCH (08:15)
--- NOTE | 2023-01-02 08:25 | Hospitalist Progress Note ---
Date of Service January 02, 2023 Assessment & Plan (1) Lower extremity edema: Plan: Suspect due to CKD from proteinuria from myeloma +/- hypertensive kidney disease ARPITA quintanilla + Lasix/chlorthalidone Improved with above treatment, switch lasix 40mg IV to PO starting tomorrow and continue chlorthalidone. Will need close management with labs as an outpatient to ensure no potassium/magnesium abnormalities (2) Hypertension: Plan: Continue lisinopril and Bystolic Added Lasix/chlorthalidone however despite this sBP remains > 180 Would try to not over treat however with sBP > 180 concern this is contributing towards CKD/proteinuria therefore will start amlodipine despite obvious side effect of leg swelling since this appears to be less of an issue now she is on diuretics (3) UTI (urinary tract infection): Plan: Klebsiella uti poa given immune supression from Multiple myeloma on ceftriaxone blood cultures are negative (4) Stage 3b chronic kidney disease: Plan: BUN 24, creatinine 2.13, EGFR 22.2 on arrival Patient follows with [facility] nephrology Ok to continue lisinopril (5) Multiple myeloma: Plan: Dx 2 weeks ago; following with Dr. Greenberg Treatment has not started yet, this is converstion from MGUS Plan VTE Prophylaxis - heparin 5000 units SQ BID Diet - low Na Disposition - continue on med/tele pending identification of urine culture and better management of blood pressure in setting of CKD/proteinuria Admission and Anticipated Discharge Date Admission Date: January 01, 2023 Results & Data Results & Data Vital Signs (Past 12 Hours) Vital Signs Temp Pulse Pulse Resp BP BP Pulse Ox 01/02/23 08:18 98.2 F 58 L 17 178/87 H 95 01/02/23 04:36 97.7 F 58 L 18 146/69 H 96 01/01/23 23:40 97.9 F 65 18 161/85 H 96 01/01/23 23:00 65 01/01/23 21:25 72 177/87 H O2 Del Method 01/02/23 08:18 Room Air 01/02/23 04:36 Room Air 01/01/23 23:40 Room Air 01/01/23 23:00 01/01/23 21:25 PG Care Time/CCT Total # of Minutes Spent Total Time Spent with Patient: Total time spent is greater than 50% in coordination of care (as documented) at patient's floor/unit and/or counseling patient: Coding Diagnoses Lower extremity edema R60.0 Other secondary hypertension I15.8 Hypertension type: other secondary hypertension UTI (urinary tract infection) N39.0 Stage 3b chronic kidney disease N18.32 Multiple myeloma not having achieved remission C90.00 Multiple myeloma remission status: not in remission (2) Hypertension Hypertension type: other secondary hypertension Qualified Code(s): I15.8 - Other secondary hypertension (5) Multiple myeloma Multiple myeloma remission status: not in remission Qualified Code(s): C90.00 - Multiple myeloma not having achieved remission
[2023-01-02] MEDS ORDERED: FUROSEMIDE 40 MG TAB PO SCH (09:00)
[2023-01-02] MEDS: cefTRIAXone SODIUM 1,000 MG in DEXTROSE 5 % MINI-B 50 ML IV SCH (11:08)
--- NOTE | 2023-01-02 12:11 | Communication Note ---
Date of Service: January 02, 2023 By CMS guidelines, a determination that the admission or continued stay is not medically necessary has been made by a member of the UR committee and a ph ysician for this hospital stay, therefore a Code 44 will be completed and the Inpatient admission will be changed to outpatient.
--- NOTE | 2023-01-02 19:17 | Discharge Summary ---
Date of Service January 02, 2023 Admission HPI Per Admitting Provider Anita is a 72-year-old female with PMH of MGRS, recent multiple myeloma dx, CKD stage IIIb, and HTN. She presented for worsening leg swelling x4 days. She reports that she has been eating more salty foods this past week due to Thanksgiving. No prior history of leg swelling. No PMH of CHF. No pain/redness in the legs on arrival. Patient reports that she took her morning medications, and that there are no recent changes in medications. She does not take diuretics. Of note, the patient was recently diagnosed with multiple myeloma and follows with Dr. Greenberg, but no cancer treatment has been started yet. Patient denies tobacco use, recreational drug use; endorses minimal alcohol use. Patient exhibits hypertension at 210/95 at time of admission; SPO2 97% on RA; vitals otherwise stable. ED course: Lasix 40 mg IV ROS: Patient endorses diarrhea over the last week, and swelling in LEs. Patient denies fever, chills, sweating, CP, SOB, abdominal pain, N/V, burning with urination, dysuria, or redness/numbness/tingling/pain in the legs. No PMHx CHF, WI, DVT/PE, diabetes Principal Diagnosis Klebsiella urinary tract present on hypertensive urgency with associated lower extremity edema Discharge Exam resolution of lower extremity edema her exam is regular there are no murmurs or rubs Discharge Data Allergies Allergy/AdvReac Type Severity Reaction Status Date / Time Sulfa (Sulfonamide Allergy Intermediate HIVES TO Verified 12/30/22 14:57 Antibiotics) SULFA DRUGS Consultations 12/30/22 14:43 ED Decision to Admit Stat Procedures Performed echocardiogram performed showing normal left ventricular function without regional wall motion abnormalities there is some mild relaxation pattern at subnormal with moderate mitral regurg Ordered Studies 12/30/22 13:41 US venous doppler LE Stat Hospital Course (1) Lower extremity edema: patient presented with hypertensive urgency and lower extremity edema. She does have mitral valve disease and this may be mild heart failure preserved ejection fraction. Patient started on chlorthalidone which help blood pressure and also helps her peripheral edema (addition to a dose of Lasix) with chronic kidney disease stage III Venous Doppler of the LEs B/L revealed no DVTs Lasix 40 mg given in the ED patient feels markedly improved is satisfied with her blood pressure control and her edema does not wish to go home on amlodipine as she read side effect profile may cause edema (2) Hypertension: Continue home nebivolol HS patient's heart rate is relatively controlled will not increase this to added chlorthalidone, have outpatient blood work in 3 days to include electrolytes and renal function (3) UTI (urinary tract infection): Klebsiella urinary tract infection resulted with home ciprofloxacin or (4) Stage 3b chronic kidney disease: BUN 24, creatinine 2.13, EGFR 22.2 on arrival Patient follows with [facility] nephrology lisinopril plus chlorthalidone (5) Multiple myeloma: Dx 2 weeks ago; following with Dr. Greenberg Treatment has not started yet Plan reinforced low-salt diet and dietary changes to help her blood pressure control and lower extremity swelling Total Time Total Time Spent Total Time Spent (In Minutes): discharged Discharge Plan Discharge Items Patient Disposition: Home - Self-Care Reason For Visit: LE EDEMA Discharge Diagnosis: hypertensive urgency lower extremity swelling klebsiella uti poa Condition on Discharge: Fair Activity: Resume your previous activity Non-emergency contact: Primary Care Provider Call non-emergency contact if: your symptoms worsen Follow-up/Referrals: Cari Whitaker PA-C [Primary Care Provider] - 01/04/23 10:45 am Diet: Low Sodium (2gm) Ambulatory Orders: Basic Metabolic Panel (Routine) Timeframe: 2 Days Location: Determined by Patient Ordered By: Randy Guzmán Attending Provider Instructions: If you have high blood pressure, you may wonder if medication is necessary to bring the numbers down. But lifestyle plays a vital role in treating high blood pressure. Controlling blood pressure with a healthy lifestyle might prevent, delay or reduce the need for medication. Here are 10 lifestyle changes that can lower blood pressure and keep it down. 1. Lose extra pounds and watch your waistline Blood pressure often increases as weight increases. Being overweight also can cause disrupted breathing while you sleep (sleep apnea), which further raises blood pressure. Weight loss is one of the most effective lifestyle changes for controlling blood pressure. If you're overweight or have obesity, losing even a small amount of weight can help reduce blood pressure. In general, blood pressure might go down by about 1 millimeter of mercury (mm Hg) with each kilogram (about 2.2 pounds) of weight lost. Also, the size of the waistline is important. Carrying too much weight around the waist can increase the risk of high blood pressure. In general: * Men are at risk if their waist measurement is greater than 40 inches (102 centimeters). * Women are at risk if their waist measurement is greater than 35 inches (89 centimeters). These numbers vary among ethnic groups. Ask your health care provider about a healthy waist measurement for you. 2. Exercise regularly Regular physical activity can lower high blood pressure by about 5 to 8mm Hg. It's important to keep exercising to keep blood pressure from rising again. As a general goal, aim for at least 30 minutes of moderate physical activity every day. Exercise can also help keep elevated blood pressure from turning into high blood pressure (hypertension). For those who have hypertension, regular physical activity can bring blood pressure down to safer levels. Some examples of aerobic exercise that can help lower blood pressure include walking, jogging, cycling, swimming or dancing. Another possibility is high- intensity interval training. This type of training involves alternating short bursts of intense activity with periods of production scheduler activity. Strength training also can help reduce blood pressure. Aim to include strength training exercises at least two days a week. Talk to a health care provider about developing an exercise program. 3. Eat a healthy diet Eating a diet rich in whole grains, fruits, vegetables and low-fat dairy products and low in saturated fat and cholesterol can lower high blood pressure by up to 11mm Hg. Examples of eating plans that can help control blood pressure are the Dietary Approaches to Stop Hypertension (DASH) diet and the Mediterranean diet. Potassium in the diet can lessen the effects of salt (sodium) on blood pressure. The best sources of potassium are foods, such as fruits and vegetables, rather than supplements. Aim for 3,500 to 5,000mga day, which might lower blood pressure 4 to 5 mm Hg. Ask your care provider how much potassium you should have. 4. Reduce salt (sodium) in your diet Even a small reduction of sodium in the diet can improve heart health and reduce high blood pressure by about 5 to 6mm Hg. The effect of sodium intake on blood pressure varies among groups of people. In general, limit sodium to 2,300 milligrams (mg) a day or less. However, a lower sodium intake 1,500mga day or less is ideal for most adults. To reduce sodium in the diet: * Read food labels.Look for low-sodium versions of foods and beverages. * Eat fewer processed foods.Only a small amount of sodium occurs naturally in foods. Most sodium is added during processing. * Don't add salt.Use herbs or spices to add flavor to food. * Cook.Cooking lets you control the amount of sodium in the food. 5. Limit alcohol Limiting alcohol to less than one drink a day for women or two drinks a day for men can help lower blood pressure by about 4mm Hg. One drink equals 12 ounces of beer, 5 ounces of wine or 1.5 ounces of 80-proof liquor. But drinking too much alcohol can raise blood pressure by several points. It can also reduce the effectiveness of blood pressure medications. 6. Quit smoking Smoking increases blood pressure. Stopping smoking helps lower blood pressure. It can also reduce the risk of heart disease and improve overall health, possibly leading to a longer life. 7. Get a good night's sleep Poor sleep quality getting fewer than six hours of sleep every night for several weeks can contribute to hypertension. A number of issues can disrupt sleep, including sleep apnea, restless leg syndrome and general sleeplessness (insomnia). Let your health care provider know if you often have trouble sleeping. Finding and treating the cause can help improve sleep. However, if you don't have sleep apnea or restless leg syndrome, follow these simple tips for getting more restful sleep. * Stick to a sleep schedule.Go to bed and wake up the same time each day. Try to keep the same schedule on weeknights and on weekends. * Create a restful space.That means keeping the sleeping space cool, quiet and dark. Do something relaxing in the hour before bedtime. That might include taking a warm bath or doing relaxation exercises. Avoid bright light, such as from a TV or computer screen. * Watch what you eat and drink.Don't go to bed hungry or stuffed. Avoid large meals close to bedtime. Limit or avoid nicotine, caffeine and alcohol close to bedtime, as well. * Limit naps.For those who find napping during the day helpful, limiting naps to 30 minutes earlier in the day might help nighttime sleep. 8. Reduce stress Long-term (chronic) emotional stress may contribute to high blood pressure. More research is needed on the effects of stress reduction techniques to find out whether they can reduce blood pressure. However, it can't hurt to determine what causes stress, such as work, family, finances or illness, and find ways to reduce stress. Try the following: * Avoid trying to do too much.Plan your day and focus on your priorities. Learn to say no. Allow enough time to get done what needs to be done. * Focus on issues you can control and make plans to solve them.For an issue at work, talk to a production welding supervisor. For conflict with kids or spouse, find ways to resolve it. * Avoid stress triggers.For example, if napoles-hour traffic causes stress, travel at a different time or take public transportation. Avoid people who cause stress if possible. * Make time to relax.Take time each day to sit quietly and breathe deeply. Make time for enjoyable activities or hobbies, such as taking a walk, cooking or volunteering. * Practice gratitude.Expressing gratitude to others can help reduce stress. 9. Monitor your blood pressure at home and get regular checkups Home monitoring can help you keep tabs on your blood pressure. It can make certain your medications and lifestyle changes are working. Home blood pressure monitors are available widely and without a prescription. Talk to a health care provider about home monitoring before you get started. Regular visits with a provider are also lobo to controlling blood pressure. If your blood pressure is well controlled, ask your provider how often you need to check it. You might be able to check it only once a day or less often. 10. Get support Supportive family and friends are important to good health. They may encourage you to take care of yourself, drive you to the care provider's office or start an exercise program with you to keep your blood pressure low. If you find you need support beyond your family and friends, consider joining a support group. This may put you in touch with people who can give you an emotional or morale boost and who can offer practical tips to cope with your condition. Addtl Food Service Manager Provider Instructions: follow up with your family doctor to see how your new medication is working for you, this includes getting some blood work on or about monday01/04/23 weight youself daily and take in your weights to your doctor Pending Studies at Discharge: No Stand-Alone Forms: My [employer], Smoking Cessation Medications and DC Order Prescriptions: New chlorthalidone 25 mg Tablet 25 mg PO QAM Qty: 30 3RF ciprofloxacin HCl [Cipro] 500 mg tablet 500 mg PO BID Qty: 10 0RF Continued zinc acetate 25 mg (zinc) capsule 25 mg PO DAILY lisinopril 40 mg tablet 40 mg PO QAM Qty: 90 3RF Premarin 0.625 mg tablet 0.625 mg PO DAILY omega-3 fatty acids 1,250 mg capsule 1,250 mg PO DAILY cholecalciferol (vitamin D3) [Vitamin D3] 50 mcg (2,000 unit) tablet 25 mcg PO DAILY magnesium 250 mg tablet 500 mg PO DAILY nebivolol 10 mg tablet 10 mg PO HS calcium carbonate 500 mg calcium (1,250 mg) Tablet 500 mg PO DAILY rosuvastatin 5 mg tablet 5 mg PO HS Rx Instructions: Take 1 tablet by mouth once daily Discharge Orders: Discharge Order (Routine); Ordered 01/02/23 Ordered By: Randy Callahan Admission Data Admit Date/Time: 01/01/23 14:01 Attending Provider: Randy Callahan Admit Provider: Isiah Alvarez Primary Care Provider: Cari Whitaker Other Providers: Isiah Alvarez Other Interventions: Discharge Summary Assessment (RN) Last Done: 01/02/23 13:44 Coding Level of Care Code 85107 INP/OBS DISCH >30 MIN Diagnoses Lower extremity edema R60.0 Other secondary hypertension I15.8 Hypertension type: other secondary hypertension UTI (urinary tract infection) N39.0 Stage 3b chronic kidney disease N18.32 Multiple myeloma not having achieved remission C90.00 Multiple myeloma remission status: not in remission
== END 2023-01-02 15:45 | disposition home or self-care (01) | DRG 841 ==
LOC: 2S 12:10 → ED 12:10 → SUATTDRO 16:56 → 2S 20:07 → SUATTDRO 01-01 14:01